=== PATIENT | female | born 1990 | race Caucasian/White ===

== ENCOUNTER 2016-07-02 15:21 | Emergency (ER) | payer SELFPAY ==
[~2016-07-02] VITALS: Ht 167.6 cm; Wt 62.6 kg
[2016-07-02 15:39] VITALS: BP 101/62
--- NOTE | 2016-07-02 16:01 | Emergency Room Report ---
History of Present Illness General Chief Complaint: Abdominal Pain Source: Patient Present Illness HPI 26-year-old female presents to emergency Department c/o N/V/D x 3 days. Pt states multiple episodes of Vomiting the last two days, and only one episode of diarrhea. denies blood in the vomit or stool. pt. reports 4/10 in severity cramping lower abdominal pain, denies fevers or chills, pt. states status is unknown, she is sexually active. she is G2P@. denies incontinence of bowel or bladder. Denies hx of STI, or vaginal d/c. Denies CP, Palpitations, LOC, AMS, dizziness, Changes in Vision, Sensation, paresthesias, or a sudden severe headache. Allergies: Coded Allergies: No Known Allergies (Unverified , 07/02/16) Patient History Past Medical History: see triage record Past Surgical History: none Pertinent Family History: none Last Menstrual Period: 05/25/16 Now: No Immunizations: UTD Reviewed Nursing Documentation: PMH: Agreed, PSxH: Agreed Nursing Documentation-PMH Past Medical History: No History, Except For Review of Systems All Other Systems: negative except mentioned in HPI Physical Exam Vital Signs Date Time Temp Pulse Resp B/P Pulse Ox O2 Delivery O2 Flow Rate FiO2 07/02/16 15:29 98.4 94 14 101/62 100 Room Air Sp02 EP Interpretation: reviewed, normal General Appearance: no apparent distress, alert, GCS 15, non-toxic Head: normocephalic, atraumatic Eyes: bilateral eye PERRL, bilateral eye normal inspection ENT: hearing grossly normal, normal pharynx, no angioedema, normal voice Neck: full range of motion, supple/symm/no masses Respiratory: chest non-tender, lungs clear, normal breath sounds, speaking full sentences Cardiovascular #1: regular rate, rhythm, no edema Gastrointestinal: normal bowel sounds, non tender, soft, no guarding, no rebound, other - no appreciable TTP. Negative Wainwright signs, Negative MacBurney' s sign, Negative Rosvigns Sign, Negative Psoas, No Peritoneal signs. Rectal: deferred Genitourinary: normal inspection, no CVA tenderness Musculoskeletal: back normal, gait/station normal, normal range of motion, non- tender, no calf tenderness Neurologic: alert, oriented x3, responsive, motor strength/tone normal, sensory intact, speech normal Psychiatric: judgement/insight normal, memory normal, mood/affect normal, no suicidal/homicidal ideation Skin: normal color, no rash, warm/dry, well hydrated Lymphatic: no adenopathy Medical Decision Making PA Attestation Dr. Fleming is my supervising Physician whom patient management has been discussed with. Diagnostic Impression: Primary Impression: Qualified Codes: Z3A.01 - Less than 8 weeks gestation of Additional Impressions: Mild dehydration Subchorionic hemorrhage in first trimester Threatened in first trimester ER Course Pt. presents to the ED c/o N/V/D x 3 days. Thinks she may be . Ddx considered but are not limited to Diverticulitis, acute appy, diarrhea,UC, PUD, GE, pancreatitis, gallstone, Vital signs: are WNL, pt. is afebrile H&PE are most consistent with mild dehydration, and . ORDERS: -UA: un remarkable no evidence of infection. -Urine Hcg: Positive -PELVIC US: Single IUP approx 6 weeks gestation, with HR of 108, and small subchorionic hemorrhage. ED INTERVENTIONS: -- 1000NS - 4mg Zofran. DISCHARGE: At this time pt. is stable for d/c to home. Will provide printed patient care instructions, and any necessary prescriptions. Care plan and follow up instructions have been discussed with the patient prior to discharge. Labs Test 07/02/16 15:34 Urine Color Yellow Urine Appearance Slightly cloudy Urine pH 7 (4.5-8.0) Urine Specific [place] 1.010 (1.005-1.035) Urine Protein 2+ (NEGATIVE) Urine Glucose (UA) Negative (NEGATIVE) Urine Ketones 3+ (NEGATIVE) Urine Occult Blood 2+ (NEGATIVE) Urine Nitrite Negative (NEGATIVE) Urine Bilirubin Negative (NEGATIVE) Urine Urobilinogen Normal MG/DL (0.0-1.0) Urine Leukocyte Esterase 1+ (NEGATIVE) Urine RBC 5-10 /HPF (0 - 2) Urine WBC 2-4 /HPF (0 - 2) Urine Squamous Epithelial Cells Moderate /LPF (NONE/OCC) Urine Bacteria Few /HPF (NONE) Urine HCG, Qualitative Positive Last Vital Signs Date Time Temp Pulse Resp B/P Pulse Ox O2 Delivery O2 Flow Rate FiO2 07/02/16 15:29 98.4 94 14 101/62 100 Room Air Disposition: HOME, SELF-CARE Condition: Stable Scripts Metoclopramide Hcl* (REGLAN*) 10 Mg Tablet 10 MG ORAL THREE TIMES A DAY Y for Nausea & Vomiting, #30 TAB Prov: Keyona Beyer 07/02/16 Vit #91/Fe Fum/Fa/Dha ( + DHA COMBO PACK) 1 Each Combo..pkg 1 EACH PO DAILY, #1 PACK 6 Refills Prov: Keyona Beyer 07/02/16 Patient Instructions: Abdominal Pain During , Subchorionic Hematoma Additional Instructions: Take medications as directed. Follow up with OBGYN in 2 days Return sooner to ED if new symptoms occur, or current symptoms become worse. Keyona Beyer Jul 02, 2016 16:01
[2016-07-02 16:08] LABS: APPEARANCE,URINE SLIGHTLY CLOUDY; KETONES,URINE 3+ (NEGATIVE); LEUKOCYTE ESTERASE ,URINE 1+ (NEGATIVE); NITRITE,URINE NEGATIVE (NEGATIVE); PH,URINE 7 (4.5-8.0); PROTEIN,URINE 2+ (NEGATIVE); UROBILINOGEN,URINE NORMAL MG/DL (0.0-1.0)
[2016-07-02 16:27] LABS: BACTERIA,URINE FEW /HPF; SQUAMOUS EPITHELIAL CELL,UR MODERATE /LPF (NONE/OCC)
[2016-07-02] MEDS ORDERED: PRENATAL + DHA1 EAC1 PO (19:20)
[2016-07-02] MEDS ORDERED: REGLAN10 MG ORAL (19:20)
[2016-07-02 19:32] VITALS: BP 96/57
--- NOTE | 2016-07-14 09:47 | Diagnostic Imaging Report ---
Indication: Lower abdominal and pelvic pain, positive test, vaginal bleeding Technique: Transabdominal and transvaginal images Comparison: None Findings: Uterus measures 9.6 cm in length by 6.8 cm AP. Within the endometrium, there is a gestational sac. This demonstrates a yolk sac. There is positive heart activity, heart rate 108 beats for minute. A pole is demonstrated with a crown-rump length of 2 mm, corresponding to an estimated gestational age 5 weeks 6 days. No subchorionic hemorrhage demonstrated. Nonspecific bright echoes are seen within the endocervical canal. The right ovary measures 3.9 cm length. The left ovary measures 3.2 cm length. No adnexal mass. No free cul-de-sac fluid. Impression: 5 weeks 6 day single live intrauterine there are no unusual features
== END 2016-07-02 19:41 | disposition home or self-care (01) ==
LOC: EMR 18:27
DX: Z33.1 Pregnant state, incidental (principal); Z3A.01 Less than 8 weeks gestation of pregnancy; R10.9 Unspecified abdominal pain; R11.10 Vomiting, unspecified; R19.7 Diarrhea, unspecified
CPT/HCPCS: 76801; 81003; 81025; 96360

== ENCOUNTER 2016-07-09 16:10 | Emergency (ER) | payer SELFPAY ==
[~2016-07-09] VITALS: Ht 167.6 cm; Wt 62.6 kg
[~2016-07-09 16:10] MED LIST: PRENATAL + DHA1 EAC1 PO; REGLAN10 MG ORAL
[2016-07-09 17:07] LABS: BASOPHILS % (AUTO) 0.6 % (0.0-2.0); EOSINOPHILS % (AUTO) 0.2 % (0.0-3.0); LYMPHOCYTES % (AUTO) 18.4 % (20.0-45.0); MEAN CORPUSCULAR HEMOGLOBIN 33.1 PG (27.0-31.0); MEAN CORPUSCULAR HGB CONC 35.7 G/DL (32.0-36.0); MEAN CORPUSCULAR VOLUME 93 FL (80-99); MEAN PLATELET VOLUME 6.8 FL (6.5-10.1); MONOCYTES % (AUTO) 6.2 % (1.0-10.0); NEUTROPHILS % (AUTO) 74.6 % (45.0-75.0); PLATELET COUNT 278 K/UL (150-450); RED BLOOD COUNT 4.21 M/UL (4.20-5.40); RED CELL DISTRIBUTION WIDTH 11.1 % (11.6-14.8)
[2016-07-09 17:24] LABS: ALANINE AMINOTRANSFERASE 13 U/L (3-33); ALBUMIN/GLOBULIN RATIO 1.6 (1.0-2.7); ANION GAP 16 (5-15); ASPARTATE AMINO TRANSFERASE 15 U/L (5-40); CALCIUM 9.8 mg/dL (8.6-10.2); CARBON DIOXIDE 24 mEQ/L (20-30); CHLORIDE 97 mEQ/L (98-107); CREATININE 0.6 mg/dL (0.5-0.9); GLOMERULAR FILTRATION RATE > 60 mL/min (>60); HEMOLYSIS 5; LIPASE 24 U/L (< 60); POTASSIUM 4.2 mEQ/L (3.4-4.9); SODIUM 137 mEQ/L (135-145); TOTAL PROTEIN 7.3 g/dL (6.6-8.7)
[2016-07-09 17:37] VITALS: BP 100/64
[2016-07-09 17:40] LABS: APPEARANCE,URINE TURBID; KETONES,URINE 2+ (NEGATIVE); LEUKOCYTE ESTERASE ,URINE 1+ (NEGATIVE); NITRITE,URINE NEGATIVE (NEGATIVE); PH,URINE 8 (4.5-8.0); PROTEIN,URINE 4+ (NEGATIVE); UROBILINOGEN,URINE NORMAL MG/DL (0.0-1.0)
[2016-07-09 18:29] LABS: RBC,URINE TNTC /HPF (0 - 2); SQUAMOUS EPITHELIAL CELL,UR FEW /LPF (NONE/OCC); WBC,URINE 0-2 /HPF (0 - 2)
[2016-07-09 18:30] LABS: BACTERIA,URINE FEW /HPF
[2016-07-09] MEDS ORDERED: Ketorolac 30mg Inj IV ONE (19:15)
[2016-07-09] MEDS ORDERED: ZOFRAN ODT4 MG ORAL (19:38)
[2016-07-09 20:14] VITALS: BP_SYST 100; BP_SYST 107; BP_DIAS 64; BP_DIAS 68
--- NOTE | 2016-07-11 15:11 | Cardiology Report ---
APPROVED REPORT EKG Measurement Heart [id number] CT [id number] Sinus bradycardia Otherwise normal ECG
--- NOTE | 2016-07-12 14:02 | Emergency Room Report ---
History of Present Illness General Chief Complaint: Abdominal Pain Source: Patient Present Illness HPI Patient is a 26-year-old female presented after having increased abdominal pain. Patient gradual onset of symptoms. Patient reported having recently had a tablet of mifepristone . The patient had began vomiting and having abdominal cramping after the pill. Patient was noted to have been approximately 6 week. She reports having prior history of intrauterine ultrasound. Patient had vomited multiple times. She denied hematemesis or bloody stool Allergies: Coded Allergies: No Known Allergies (Unverified , 07/02/16) Patient History Past Medical History: see triage record Last Menstrual Period: 05/26/16 Now: No Reviewed Nursing Documentation: PMH: Agreed, PSxH: Agreed Nursing Documentation-PMH Past Medical History: No History, Except For Review of Systems All Other Systems: negative except mentioned in HPI Physical Exam Vital Signs Date Time Temp Pulse Resp B/P Pulse Ox O2 Delivery O2 Flow Rate FiO2 07/09/16 16:20 98.1 77 14 110/70 100 Room Air Sp02 EP Interpretation: reviewed, normal General Appearance: normal inspection, well appearing, no apparent distress, alert, GCS 15 Head: atraumatic ENT: normal ENT inspection, hearing grossly normal, normal voice Neck: normal inspection, full range of motion, supple, no bony tend Respiratory: normal inspection, lungs clear, normal breath sounds, no respiratory distress, no retraction, no wheezing Cardiovascular #1: regular rate, rhythm, no edema Gastrointestinal: normal inspection, normal bowel sounds, non tender, soft, no guarding, no hernia Genitourinary: no CVA tenderness Musculoskeletal: normal inspection, back normal, normal range of motion Neurologic: normal inspection, alert, oriented x3, responsive, sportspersons III-XII nml as tested, speech normal Psychiatric: normal inspection, judgement/insight normal, mood/affect normal Skin: normal inspection, normal color, no rash Medical Decision Making Diagnostic Impression: Primary Impression: Vomiting Additional Impression: Dehydration ER Course Patient presented for vomiting. Differential diagnosis include was not limited to incomplete , sepsis, appendicitis, hyperemesis among others. Because of complexity of patient's case laboratory testing and imaging studies were ordered. The laboratory studies are unremarkable. Patient was given IV Zofran with improvement. Patient started on IV fluids for mild dehydration. Pelvic ultrasound was not performed as she had recent ultrasound. Patient was given prescription for Zofran. The patient is advised to follow up with [facility] doctor in 1-2 days. Patient is advised to return if any worsening condition or if any changes in status that are concerning. Labs Test 07/09/16 16:56 White Blood Count 12.0 K/UL (4.8-10.8) Red Blood Count 4.21 M/UL (4.20-5.40) Hemoglobin 13.9 G/DL (12.0-16.0) Hematocrit 39.1 % (37.0-47.0) Mean Corpuscular Volume 93 FL (80-99) Mean Corpuscular Hemoglobin 33.1 PG (27.0-31.0) Mean Corpuscular Hemoglobin Concent 35.7 G/DL (32.0-36.0) Red Cell Distribution Width 11.1 % (11.6-14.8) Platelet Count 278 K/UL (150-450) Mean Platelet Volume 6.8 FL (6.5-10.1) Neutrophils (%) (Auto) 74.6 % (45.0-75.0) Lymphocytes (%) (Auto) 18.4 % (20.0-45.0) Monocytes (%) (Auto) 6.2 % (1.0-10.0) Eosinophils (%) (Auto) 0.2 % (0.0-3.0) Basophils (%) (Auto) 0.6 % (0.0-2.0) Urine Color Red Urine Appearance Turbid Urine pH 8 (4.5-8.0) Urine Specific [place] 1.015 (1.005-1.035) Urine Protein 4+ (NEGATIVE) Urine Glucose (UA) Negative (NEGATIVE) Urine Ketones 2+ (NEGATIVE) Urine Occult Blood 5+ (NEGATIVE) Urine Nitrite Negative (NEGATIVE) Urine Bilirubin Negative (NEGATIVE) Urine Urobilinogen Normal MG/DL (0.0-1.0) Urine Leukocyte Esterase 1+ (NEGATIVE) Urine RBC Tntc /HPF (0 - 2) Urine WBC 0-2 /HPF (0 - 2) Urine Squamous Epithelial Cells Few /LPF (NONE/OCC) Urine Bacteria Few /HPF (NONE) Urine HCG, Qualitative Positive Sodium Level 137 mEQ/L (135-145) Potassium Level 4.2 mEQ/L (3.4-4.9) Chloride Level 97 mEQ/L (98-107) Carbon Dioxide Level 24 mEQ/L (20-30) Anion Gap 16 (5-15) Blood Urea Nitrogen 6 mg/dL (7-23) Creatinine 0.6 mg/dL (0.5-0.9) Estimat Glomerular Filtration Rate > 60 mL/min (>60) Glucose Level 81 mg/dL (74-106) Calcium Level 9.8 mg/dL (8.6-10.2) Total Bilirubin 0.7 mg/dL (0.0-1.2) Aspartate Amino Transf (AST/SGOT) 15 U/L (5-40) Alanine Aminotransferase (ALT/SGPT) 13 U/L (3-33) Alkaline Phosphatase 50 U/L (35-104) Total Protein 7.3 g/dL (6.6-8.7) Albumin 4.5 g/dL (3.5-5.2) Globulin 2.8 g/dL Albumin/Globulin Ratio 1.6 (1.0-2.7) Lipase 24 U/L (< 60) Last Vital Signs Date Time Temp Pulse Resp B/P Pulse Ox O2 Delivery O2 Flow Rate FiO2 07/09/16 20:14 98.2 63 14 100/64 99 Room Air Status: improved Disposition: HOME, SELF-CARE Condition: Stable Scripts Ondansetron Odt* (ZOFRAN ODT*) 4 Mg Tab.rapdis 4 MG ORAL Q6H Y for Nausea & Vomiting, #15 TAB 0 Refills Prov: Marcus Sandoval 07/09/16 Patient Instructions: Dehydration, Adult Marcus Sandoval Jul 12, 2016 14:02
== END 2016-07-09 20:16 | disposition home or self-care (01) ==
LOC: EMR 16:55
DX: O21.9 Vomiting of pregnancy, unspecified (principal); Z3A.01 Less than 8 weeks gestation of pregnancy; O26.891 Other specified pregnancy related conditions, first trimester; E86.0 Dehydration
CPT/HCPCS: 36415; 80053; 81003; 81025; 83690; 85025; 93005; 96360; 96374; 96375; 99284; J1885; J2405

== ENCOUNTER 2016-07-10 22:11 | Emergency (ER) | payer SELFPAY ==
[~2016-07-10] VITALS: Ht 160 cm; Wt 61.2 kg
[~2016-07-10 22:11] MED LIST changes: +ZOFRAN ODT4 MG ORAL
[2016-07-10 22:38] VITALS: BP 99/57
--- NOTE | 2016-07-10 22:50 | Emergency Room Report ---
History of Present Illness General Chief Complaint: Vomiting Source: Patient Present Illness HPI Is a 26-year-old female who is approximately 6 weeks . She been having problem with vomiting and severely for the last 9 days. She was in here 3, ready. She had ultrasound does show a gestational sac with subchorionic bleeding. She seen her [facility] and started on methotrexate. She had no percentile 2 days ago that showed 6 weeks without heartbeat. She got one dose of methotrexate. Unable to take a second dose because of persistent vomiting. No fever or chills. Cramping pain. Is bleeding more now. No other complaint. No diarrhea Allergies: Coded Allergies: No Known Allergies (Unverified , 07/02/16) Patient History Past Medical History: see triage record, old chart reviewed Past Surgical History: other Pertinent Family History: none Social History: Denies: drug use Now: Yes - pt is 7 weeks . : 2 Para: 2 Immunizations: other Reviewed Nursing Documentation: PMH: Agreed, PSxH: Agreed Nursing Documentation-PMH Past Medical History: No History, Except For Review of Systems Eye: Denies: blurred vision, eye pain ENT: Denies: ear pain, nose congestion, throat swelling Respiratory: Denies: cough, shortness of breath Cardiovascular: Denies: chest pain, palpitations Gastrointestinal: Reports: abdominal pain, nausea, vomiting, Denies: diarrhea Musculoskeletal: Denies: back pain, joint pain Skin: Denies: rash Neurological: Denies: headache, numbness Endocrine: Denies: increased thirst, increased urine Hematologic/Lymphatic: Denies: easy bruising All Other Systems: negative except mentioned in HPI Physical Exam Vital Signs Date Time Temp Pulse Resp B/P Pulse Ox O2 Delivery O2 Flow Rate FiO2 07/10/16 22:19 100.8 100 21 102/69 96 Room Air vitals with low-grade fever. Sp02 EP Interpretation: reviewed, normal General Appearance: no apparent distress, alert, mild distress, thin Head: normocephalic, atraumatic Eyes: bilateral eye EOMI, bilateral eye PERRL ENT: hearing grossly normal, normal pharynx, dry mucus membranes Neck: full range of motion, supple, no meningismus Respiratory: chest non-tender, lungs clear, normal breath sounds Cardiovascular #1: regular rate, rhythm, no murmur Gastrointestinal: normal bowel sounds, no mass, no organomegaly, no bruit, non- distended, tenderness - Diffusely Musculoskeletal: back normal, gait/station normal, normal range of motion Psychiatric: mood/affect normal Skin: warm/dry Medical Decision Making Diagnostic Impression: Primary Impression: Dehydration Additional Impressions: Threatened in first trimester UTI (urinary tract infection) Qualified Codes: N30.00 - Acute cystitis without hematuria Proteinuria ER Course Patient present with abdominal pain. Ultrasound showed that she still has an IUP with heart rate of 144. Measure about 7 weeks. She also has a large subchorionic hemorrhage. Most likely will have a miscarriage. Tolerating by mouth now. We'll discharge home. She may have a urinary tract infection. Antibiotic started. No evidence of obstruction. No evidence of acute abdomen. Lab Results Impression labs unremarkable CT/MRI/US Diagnostic Results CT/MRI/US Diagnostic Results : Imaging Test Ordered: US pelvic Impression Interpreted by Tender Labor. IUP at 7 weeks. FHT positive. Large subchorionic hemorrhage. Last Vital Signs Date Time Temp Pulse Resp B/P Pulse Ox O2 Delivery O2 Flow Rate FiO2 07/10/16 22:38 99.0 94 16 99/57 98 Room Air Status: improved Disposition: HOME, SELF-CARE Condition: Stable Scripts Cephalexin* (KEFLEX*) 500 Mg Capsule 500 MG ORAL TID, #21 CAP 0 Refills Prov: CHAUNCEY RAE M.D. 07/11/16 Ondansetron Odt* (ZOFRAN ODT*) 4 Mg Tab.rapdis 4 MG ORAL Q6H Y for Nausea & Vomiting, #20 TAB 0 Refills Prov: CHAUNCEY RAE M.D. 07/11/16 Referrals: NOT CHOSEN IPA/,REFERRING (PCP) Additional Instructions: Followup with your OB in one to 2 days. Return if symptom worsen. CHAUNCEY RAE M.D. Jul 10, 2016 22:50
[2016-07-10 23:00] LABS: APPEARANCE,URINE SLIGHTLY CLOUDY; BASOPHILS % (AUTO) 0.4 % (0.0-2.0); KETONES,URINE 1+ (NEGATIVE); LEUKOCYTE ESTERASE ,URINE 1+ (NEGATIVE); MEAN CORPUSCULAR HGB CONC 37.8 G/DL (32.0-36.0); MEAN CORPUSCULAR VOLUME 92 FL (80-99); MEAN PLATELET VOLUME 6.9 FL (6.5-10.1); MONOCYTES % (AUTO) 9.7 % (1.0-10.0); NEUTROPHILS % (AUTO) 77.9 % (45.0-75.0); NITRITE,URINE NEGATIVE (NEGATIVE); PH,URINE 6 (4.5-8.0); PLATELET COUNT 217 K/UL (150-450); PROTEIN,URINE 2+ (NEGATIVE); RED BLOOD COUNT 3.49 M/UL (4.20-5.40); UROBILINOGEN,URINE 4 MG/DL (0.0-1.0); WHITE BLOOD COUNT 8.4 K/UL (4.8-10.8)
[2016-07-10] MEDS ORDERED: D5NS 1,000 ML IV ONE (23:00)
[2016-07-10] MEDS ORDERED: Ketorolac 30mg Inj IV ONE (23:00)
[2016-07-10 23:07] LABS: BACTERIA,URINE MANY /HPF; SQUAMOUS EPITHELIAL CELL,UR MANY /LPF (NONE/OCC)
[2016-07-10] MEDS ORDERED: cefTRIAXone 1 GM in NS 55 ML IVPB ONE (23:15)
[2016-07-10 23:17] LABS: ANION GAP 19 (5-15); CALCIUM 9.3 mg/dL (8.6-10.2); CARBON DIOXIDE 22 mEQ/L (20-30); CHLORIDE 94 mEQ/L (98-107); CREATININE 0.6 mg/dL (0.5-0.9); GLOMERULAR FILTRATION RATE > 60 mL/min (>60); HEMOLYSIS 3; POTASSIUM 3.5 mEQ/L (3.4-4.9); SODIUM 135 mEQ/L (135-145)
[2016-07-10 23:30] VITALS: BP 101/58
[2016-07-11 01:00] VITALS: BP 105/60
[2016-07-11] MEDS ORDERED: KEFLEX500 MG ORAL (02:14)
[2016-07-11] MEDS ORDERED: ZOFRAN ODT4 MG ORAL (02:14)
[2016-07-11 02:33] VITALS: BP 107/60
--- NOTE | 2016-07-11 11:05 | Diagnostic Imaging Report ---
Indication: Abdominal pain, recent pharmacologic Technique: One view of the chest Comparison: 07/02/2016 Findings: Uterus measures 11.7 cm length by 6.5 cm AP. Again demonstrated within the endometrium is a gestational sac containing a pole with positive heart activity, heart rate 141 beats for minute. [place]rump length is 9 mm, corresponding to an estimated gestational age of 6 weeks 6 days, with estimated date of delivery of 02/26/2017 which is unchanged from the previous estimated date of delivery indicates appropriate interval growth. Small subchorionic hemorrhage is still present the lower uterine segment,, appears unchanged left ovary measures 2.9 cm length. Right ovary measures 2.3 cm length. No adnexal mass. No free cul-de-sac fluid. Impression: 6 week 6 day viable single live intrauterine , with appropriate interval growth since previous exam of one week earlier. Graft persistent small subchorionic hemorrhage Negative for adnexal mass
== END 2016-07-11 02:33 | disposition home or self-care (01) ==
LOC: EMR 22:38
DX: O20.0 Threatened abortion (principal); Z3A.01 Less than 8 weeks gestation of pregnancy; O23.11 Infections of bladder in pregnancy, first trimester; O12.11 Gestational proteinuria, first trimester; O26.891 Other specified pregnancy related conditions, first trimester; E86.0 Dehydration
CPT/HCPCS: 36415; 76801; 76830; 80048; 81003; 84702; 85025; 87086; 96360; 96361; 96374; 96375; 99284; J0696; J1885; J2405

== ENCOUNTER 2018-09-10 20:24 | Emergency (ER) | payer MEDICAID ==
[~2018-09-10] VITALS: Ht 167.6 cm; Wt 52.6 kg
[~2018-09-10 20:24] MED LIST changes: +KEFLEX500 MG ORAL
--- NOTE | 2018-09-10 20:45 | NUR ---
ED Nurse Note: Patient walked into ED c/o bleeding. Per patient she is 8 weeks and has soaked 3 pads in the past hour. Describes it has a deep red blood with clots accompanied by cramping pain.
--- NOTE | 2018-09-10 20:45 | Emergency Room Report ---
History of Present Illness General Chief Complaint: Complications Source: Patient Present Illness [facility] presents with vaginal bleeding that started this evening. She was seen by her doctor earlier today. She had a pelvic done at that time. There is no mention of bleeding however she started to have bleeding afterwards. She's bleeding 3 pads per hour and passed some clot material in the toilet before coming in. She had difficulty because she's had nausea and feels dehydrated. She felt dizzy at home and came in because of that. She tried taking nausea medication but didn't help. She denies any fevers. She feels cramping in her lower abdomen and also in her back. The pain is rated 6/10. She denies dysuria. The patient has a history of kidney stones. She believes her blood type is O+. The chest pain, cough, shortness of breath calf pain, rashes or change in bowels. Allergies: Coded Allergies: No Known Allergies (Unverified , 07/02/16) Patient History Past Medical History: see triage record Social History: Reports: smoking Social History Narrative 10 and 12 yo boys Last Menstrual Period: 8 weeks Now: Yes : 3 Para: 2 Reviewed Nursing Documentation: PMH: Agreed; PSxH: Agreed Nursing Documentation-PMH Past Medical History: No History, Except For Review of Systems All Other Systems: negative except mentioned in HPI Physical Exam Vital Signs Date Time Temp Pulse Resp B/P (MAP) Pulse Ox O2 Delivery O2 Flow Rate FiO2 09/10/18 20:26 99.0 76 18 112/72 99 Room Air Sp02 EP Interpretation: reviewed, normal General Appearance: well appearing, no apparent distress, GCS 15 Head: normocephalic Eyes: bilateral eye normal inspection, bilateral eye PERRL, bilateral eye EOMI ENT: moist mucus membranes Neck: supple Respiratory: lungs clear, normal breath sounds Cardiovascular #1: regular rate, rhythm Cardiovascular #2: 2+ radial (R) Gastrointestinal: normal inspection, normal bowel sounds, non tender, no mass, non-distended Genitourinary: no CVA tenderness, deferred - for ultrasound Musculoskeletal: back normal, gait/station normal, normal range of motion Neurologic: alert, oriented x3, grossly normal Psychiatric: mood/affect normal Skin: normal inspection, warm/dry Medical Decision Making Diagnostic Impression: Primary Impression: Threatened miscarriage Additional Impression: Dehydration ER Course Patient presents with vaginal bleeding with history of being a weeks . Differential includes ectopic, threatened miscarriage, incomplete miscarriage amongst others. Patient be evaluated with labs including blood type. The patient will be treated with IV hydration, Reglan, Benadryl and Tylenol. An ultrasound will be obtained. Labs with normal WBC. Min low H/H. CMP unremarkable. Quant 78,321. UA with blood admixture, no pyuria. Ultrasound 8 weeks 6 days with FHT 146. Subchorionic hemorrhage, No material in cervix. Nausea is better. Bleeding continues, but is less. Pain now 2/10. Orthostatic by pulse - second liter. Orthostatic VS corrected. Patient improved. Bleeding decreased. Discussed findings and outpatient observation with patient and significant other. Patient stable for outpatient observation and treatment. Laboratory Tests Test 09/10/18 20:15 09/10/18 20:50 White Blood Count 12.2 K/UL (4.8-10.8) H Red Blood Count 3.89 M/UL (4.20-5.40) L Hemoglobin 12.3 G/DL (12.0-16.0) Hematocrit 35.0 % (37.0-47.0) L Mean Corpuscular Volume 90 FL (80-99) Mean Corpuscular Hemoglobin 31.6 PG (27.0-31.0) H Mean Corpuscular Hemoglobin Concent 35.1 G/DL (32.0-36.0) Red Cell Distribution Width 10.6 % (11.6-14.8) L Platelet Count 228 K/UL (150-450) Mean Platelet Volume 6.3 FL (6.5-10.1) L Neutrophils (%) (Auto) 74.2 % (45.0-75.0) Lymphocytes (%) (Auto) 18.1 % (20.0-45.0) L Monocytes (%) (Auto) 6.7 % (1.0-10.0) Eosinophils (%) (Auto) 0.3 % (0.0-3.0) Basophils (%) (Auto) 0.7 % (0.0-2.0) Prothrombin Time 11.7 SEC (9.30-11.50) H Prothrombin Time INR 1.1 (0.9-1.1) PTT 28 SEC (23-33) Sodium Level 138 MMOL/L (136-145) Potassium Level 3.4 MMOL/L (3.5-5.1) L Chloride Level 102 MMOL/L (98-107) Carbon Dioxide Level 27 MMOL/L (21-32) Anion Gap 9 mmol/L (5-15) Blood Urea Nitrogen 9 mg/dL (7-18) Creatinine 0.6 MG/DL (0.55-1.30) Estimate Glomerular Filtration Rate > 60 mL/min (>60) Glucose Level 92 MG/DL (74-106) Calcium Level 9.4 MG/DL (8.5-10.1) Total Bilirubin 0.5 MG/DL (0.2-1.0) Aspartate Amino Transferase (AST) 11 U/L (15-37) L Alanine Aminotransferase (ALT) 19 U/L (12-78) Alkaline Phosphatase 62 U/L (46-116) Total Protein 7.6 G/DL (6.4-8.2) Albumin 4.2 G/DL (3.4-5.0) Globulin 3.4 g/dL Albumin/Globulin Ratio 1.2 (1.0-2.7) Lipase 109 U/L (73-393) Human Chorionic Gonadotropin, Quant 44011 mIU/mL (1-6) H Urine Color Red Urine Appearance Turbid Urine pH 8 (4.5-8.0) Urine Specific [place] 1.015 (1.005-1.035) Urine Protein 4+ (NEGATIVE) H Urine Glucose (UA) 1+ (NEGATIVE) H Urine Ketones Negative (NEGATIVE) Urine Blood 5+ (NEGATIVE) H Urine Nitrite Positive (NEGATIVE) H Urine Bilirubin Negative (NEGATIVE) Urine Urobilinogen Normal MG/DL (0.0-1.0) Urine Leukocyte Esterase 1+ (NEGATIVE) H Urine RBC Tntc /HPF (0 - 2) H Urine WBC 2-4 /HPF (0 - 2) Urine Squamous Epithelial Cells Moderate /LPF (NONE/OCC) H Urine Bacteria Few /HPF (NONE) Rhythm Strip Diag. Results EP Interpretation: yes Rhythm: NSR, no PVC's, no ectopy CT/MRI/US Diagnostic Results CT/MRI/US Diagnostic Results : Imaging Test Ordered: pelvic u/s Impression 1. Single live intrauterine with an estimated gestational age of 8 weeks 6 days per crown-rump length measurement of 14.5 mm. Estimated due date is 04/16/19 2. 5 mm layer of subchorionic hemorrhage warrants close followup. Last Vital Signs Date Time Temp Pulse Resp B/P (MAP) Pulse Ox O2 Delivery O2 Flow Rate FiO2 09/10/18 23:35 98.9 18 112/72 99 Room Air 09/10/18 20:26 76 Status: improved Disposition: HOME, SELF-CARE Condition: Improved Scripts Acetaminophen (Tylenol) 325 Mg Tablet 650 MG ORAL Q6H PRN for Prn Pain/Headache/Temp > 101, #30 TAB 0 Refills Prov: Tamir Stringer MD 09/10/18 Promethazine Hcl (PROMETHAZINE HCL) 25 Mg Supp.rect 25 MG RC Q8HR, #3 SUPP 1 Refill Prov: Tamir Stringer MD 09/10/18 Promethazine Hcl* (PHENERGAN*) 25 Mg Tablet 25 MG ORAL Q8HR, #10 TAB 1 Refill Prov: Tamir Stringer MD 09/10/18 Tamir Stringer MD Sep 10, 2018 20:45
[2018-09-10] MEDS: Metoclopramide 10mg/2ml Inj IVP ONE (20:52)
[2018-09-10] MEDS: DiphenhydrAMINE 50mg/ml Inj IVP ONE (20:53)
[2018-09-10 20:57] LABS: BASOPHILS % (AUTO) 0.7 % (0.0-2.0); EOSINOPHILS % (AUTO) 0.3 % (0.0-3.0); HEMOGLOBIN 12.3 G/DL (12.0-16.0); LYMPHOCYTES % (AUTO) 18.1 % (20.0-45.0); MEAN CORPUSCULAR VOLUME 90 FL (80-99); MONOCYTES % (AUTO) 6.7 % (1.0-10.0); NEUTROPHILS % (AUTO) 74.2 % (45.0-75.0); PLATELET COUNT 228 K/UL (150-450); RED BLOOD COUNT 3.89 M/UL (4.20-5.40); RED CELL DISTRIBUTION WIDTH 10.6 % (11.6-14.8); WHITE BLOOD COUNT 12.2 K/UL (4.8-10.8)
[2018-09-10 21:06] LABS: ANION GAP 9 mmol/L (5-15); BLOOD UREA NITROGEN 9 mg/dL (7-18); CALCIUM 9.4 MG/DL (8.5-10.1); CARBON DIOXIDE 27 MMOL/L (21-32); CHLORIDE 102 MMOL/L (98-107); CREATININE 0.6 MG/DL (0.55-1.30); POTASSIUM 3.4 MMOL/L (3.5-5.1); SODIUM 138 MMOL/L (136-145)
[2018-09-10 21:10] LABS: ALANINE AMINOTRANSFERASE 19 U/L (12-78); ALBUMIN 4.2 G/DL (3.4-5.0); ALBUMIN/GLOBULIN RATIO 1.2 (1.0-2.7); ALKALINE PHOSPHATASE 62 U/L (46-116); ASPARTATE AMINO TRANSFERASE 11 U/L (15-37); BILIRUBIN,TOTAL 0.5 MG/DL (0.2-1.0)
[2018-09-10 21:18] LABS: INR 1.1 (0.9-1.1)
[2018-09-10 21:20] LABS: APPEARANCE,URINE TURBID; BILIRUBIN, URINE NEGATIVE (NEGATIVE); COLOR,URINE RED; GLUCOSE, URINE (UA) 1+ (NEGATIVE); KETONES,URINE NEGATIVE (NEGATIVE); LEUKOCYTE ESTERASE ,URINE 1+ (NEGATIVE); NITRITE,URINE POSITIVE (NEGATIVE); PH,URINE 8 (4.5-8.0); PROTEIN,URINE 4+ (NEGATIVE); UROBILINOGEN,URINE NORMAL MG/DL (0.0-1.0)
--- NOTE | 2018-09-10 21:35 | NUR ---
ED Nurse Note: US by bed side
[2018-09-10] MEDS ORDERED: PROMETHAZINE HC25 MG RC (22:23)
[2018-09-10] MEDS ORDERED: PHENERGAN25 M1 ORAL (22:23)
--- NOTE | 2018-09-10 22:42 | NUR ---
ED Nurse Note: Patient is in the bed, states that bleedeng decreased. AAO x4, VSS at this time.
--- NOTE | 2018-09-10 22:43 | Diagnostic Imaging Report ---
EXAM: US Pelvis Complete, Transabdominal CLINICAL HISTORY: ABD PAIN TECHNIQUE: Real-time transabdominal pelvic ultrasound (complete) with image documentation. COMPARISON: 07-02-16 FINDINGS: Uterus/cervix: Estimated size is 9.4 x 5.5 x 7 cm. No myometrial mass. Single live intrauterine with an estimated gestational age of 8 weeks 6 days per crown-rump length measurement of 14.5 mm. 8mm yolk sac is present. heart rate is 147. Suspect 5 mm layer of subchorionic hemorrhage on image 43. Right ovary: measures about 3.1 x 2 x 3.1 cm. Normal blood flow. Left ovary: Measures about 2.5 x 1 x 3.2 cm. Free fluid: Trace of cul-de-sac fluid is nonspecific. Other findings: IMPRESSION: 1. Single live intrauterine with an estimated gestational age of 8 weeks 6 days per crown-rump length measurement of 14.5 mm. Estimated due date is 04/16/19 2. 5 mm layer of subchorionic hemorrhage warrants close followup.
[2018-09-10] MEDS ORDERED: TYLENOL325 MG ORAL (23:24)
[2018-09-10 23:35] VITALS: BP 112/72
--- NOTE | 2018-09-10 23:35 | NUR ---
ER DISCHARGE NOTE: Patient is cleared to be discharged per ERMD, pt is aox4, on room air, with stable vital signs. pt was given dc and prescription instructions, pt was able to verbalize understanding, pt id band and iv site removed without complications. pt is able to ambulate with steady gait. pt took all belongings.
== END 2018-09-10 23:35 | disposition home or self-care (01) ==
LOC: EMR 20:43
DX: O20.0 Threatened abortion (principal); Z3A.08 8 weeks gestation of pregnancy; O26.891 Other specified pregnancy related conditions, first trimester; E86.0 Dehydration; Z87.891 Personal history of nicotine dependence
CPT/HCPCS: 36415; 76801; 76830; 80053; 81003; 83690; 84702; 85025; 85610; 85730; 86850; 86900; 86901; 96361; 96374; 96375; 99284; J1200; J2765